=== PATIENT | female | born 1960 | race Caucasian/White ===

== ENCOUNTER → 2016-06-07 | Outpatient (CLI) | payer OTHER | LOC: FIMAGING 09:09 | DX: Z12.31 Encounter for screening mammogram for malignant neoplasm of breast (principal) | CPT/HCPCS: G0202 ==

== ENCOUNTER → 2017-06-13 | Outpatient (CLI) | payer OTHER | LOC: FIMAGING 09:07 | PROVIDERS: ATTEND Obstetrics & Gynecology | DX: Z12.31 Encounter for screening mammogram for malignant neoplasm of breast (principal) ==

== ENCOUNTER 2017-08-16 05:51 | Day surgery (SDC) | payer OTHER ==
--- NOTE | 2017-08-15 18:08 | PDGENHP ---
History & Physical Chief Complaint: Preop: Laparoscopic BSO, removal of adnexal mass History of Present Illness: 57 yo who I saw in the office recently in consulation regarding adnexal mass discovered on recent US. This lesion had simple septations (without blood flow within) and some comment of escrescences/ nodularity on the cyst wall. We did get a CA125 that was normal. We discussed tx options included observation and LS removal - and she'd prefer removal which I think is prudent. Discussed RBA of just cystectomy vs USO vs BSO at her age and she'd prefer BSO. Pertinent Past, Social, Family History: Non-contributory. Relevant Physical Exam: NAD, RRR, LCTAB. Assessment & Plan Assessment: Preop: Laparoscopic BSO w/ removal of adnexal mass - Routine preop orders. Abx are NOT needed for this case. - Pyridium 200mg PO x 1 to be given in PREOP prior to procedure. - Will plan on home same day, with script for PO narcotics PRN and post-op instructions. JEFF
[2017-08-16] MEDS ORDERED: PHENAZOPYRIDINE HCL 200 MG TAB PO ONE (06:15)
[2017-08-16] MEDS ORDERED: LR 1,000 ML IV ONE (06:16)
[2017-08-16] MEDS ORDERED: LIDOCAINE 1% 2 ML INJ ID PRN (06:16)
[2017-08-16] MEDS ORDERED: BUPIVACAINE/EPI 0.5% 30 ML SDV ONE (06:29)
[2017-08-16] MEDS ORDERED: MIDAZOLAM 2 MG/2 ML VIAL IVP ONE (07:00)
[2017-08-16] MEDS ORDERED: SCOPOLAMINE HYDROBROMIDE 1 MG/3 DAYS PATCH TD SCH (07:00)
--- NOTE | 2017-08-16 07:01 | PDANEPAE ---
ANE History of Present Illness left adnexal cyst ANE Past Medical History - Cardiovascular History Hx Hypertension: No Hx Arrhythmias: No Hx Chest Pain: No Hx Coronary Artery / Peripheral Vascular Disease: No Hx CHF / Valvular Disease: No Hx Palpitations: No - Pulmonary History Hx COPD: No Hx Asthma/Reactive Airway Disease: No Hx Recent Upper Respiratory Infection: No Hx Oxygen in Use at Home: No Hx Sleep Apnea: No Sleep Apnea Screening Result - Last Documented: Negative - Neurologic History Hx Cerebrovascular Accident: No Hx Seizures: No Hx Dementia: No - Endocrine History Hx Diabetes: No - Renal History Hx Renal Disorders: No - Liver History Hx Hepatic Disorders: No - Neurological & Psychiatric Hx Hx Neurological and Psychiatric Disorders: No - Cancer History Hx Cancer: No - Congenital Disorder History Hx Congenital Disorders: No - GI History Hx Gastrointestinal Disorders: No - Other Health History Other Health History: none - Chronic Pain History Chronic Pain: No - Surgical History Prior Surgeries: fibroid ablation ANE Review of Systems Review of systems is: negative Review of Systems: - Exercise capacity METS (RN): 5 METS ANE Patient History - Allergies Allergies/Adverse Reactions: Penicillins Allergy (Mild, Verified 07/18/17 15:38) Hives - Home Medications Home medications: home medication list seen and reviewed Home Medications: Aspirin [Aspirin 81mg (OTC)] 09/01/11 [Last Taken 07/26/17] CHOLECALCIFEROL [Vitamin D] 09/01/11 [Last Taken 08/02/17] Multivitamins [Multivitamin (OTC)] 09/01/11 [Last Taken 08/02/17] Melrose-3 Fatty Acids [Fish Oil 1000 mg (OTC)] 09/01/11 [Last Taken 08/02/17] Pseudoephedrine HCl [Sudafed 12 Hour 120mg (OTC)] 09/01/11 [Last Taken 07/19/17 ] - NPO status NPO Since - Liquids (Date): 08/16/17 NPO Since - Liquids (Time): 02:00 NPO Since - Solids (Date): 08/15/17 NPO Since - Solids (Time): 19:00 - Anes Hx Anes Hx: no prior problems - Smoking Hx Smoking Status: Never smoked - Family Anes Hx Family Hx Anesthesia Complications: Multiple family members with problems with epinephrine ANE Labs/Vital Signs - Vital Signs Blood Pressure: 126/70 Heart Rate: 97 Respiratory Rate: 14 O2 Sat (%): 99 Height: 168.91 cm Weight: 58.06 kg ANE Physical Exam - Airway Neck exam: FROM Mallampati Score: Class 1 Mouth exam: normal dental/mouth exam - Pulmonary Pulmonary: no respiratory distress - Cardiovascular Cardiovascular: regular rate and rhythym - ASA Status ASA Status: II ANE Anesthesia Plan Anesthesia Plan: general endotracheal anesthesia
[2017-08-16] MEDS ORDERED: fentaNYL 100 MCG/2 ML INJ ONE ×2 (07:07→07:44)
[2017-08-16] MEDS ORDERED: PROPOFOL 200 MG/20 ML VIAL ONE (07:07)
[2017-08-16] MEDS ORDERED: DEXAMETHASONE 4 MG/ML VIAL ONE ×2 (07:08)
[2017-08-16] MEDS ORDERED: KETOROLAC 30 MG/1 ML SDV ONE (07:08)
[2017-08-16] MEDS ORDERED: LIDOCAINE 2% 5 ML SDV ONE (07:10)
--- NOTE | 2017-08-16 07:22 | PDHPUP ---
History & Physical Update H&P update statement: This history and physical update is based on an assessment of the patient which was completed after admission or registration (within 24 hours), but prior to the surgery/procedure. H&P update: H&P reviewed & patient examined, no change in patient's condition since H&P completed
[2017-08-16] MEDS ORDERED: ROCURONIUM 50 MG/5 ML VIAL ONE (07:44)
[2017-08-16] MEDS ORDERED: LIDOCAINE 2% 100 MG/5 ML SYR ONE (07:44)
[2017-08-16] MEDS ORDERED: SUGAMMADEX SODIUM 200 MG/2 ML VIAL IVP ONE (07:44)
[2017-08-16] MEDS ORDERED: ESMOLOL HCL 100 MG/10 ML VIAL IV ONE (07:46)
--- NOTE | 2017-08-16 08:09 | POSTANESTH ---
Post Anesthetic Evaluation Cardiovascular Status: Normal, Stable Respiratory Status: Normal, Stable Level of Consciousness/Mental Status: Can Participate in Eval Pain Control: Adequate, Prn Tx Ordered Nausea/Vomiting Control: Adequate, Prn Tx Ordered Complications Possibly Related to Anesthesia: None Noted
[2017-08-16] MEDS ORDERED: PROMETHAZINE HCL 25 MG/ML INJ IVP PRN (08:34)
[2017-08-16] MEDS ORDERED: ONDANSETRON 4 MG/2 ML VIAL IVP PRN (08:34)
[2017-08-16] MEDS ORDERED: NALOXONE HCL 0.4 MG/ML INJ IVP PRN (08:34)
[2017-08-16] MEDS ORDERED: HYDROmorphONE/DILAUDID 2 MG/ML INJ IVP PRN (08:34)
[2017-08-16] MEDS ORDERED: ACETAMINOPHEN 500 MG TAB PO PRN (08:34)
[2017-08-16] MEDS ORDERED: fentaNYL 100 MCG/2 ML INJ IVP PRN (08:34)
[2017-08-16] MEDS ORDERED: oxyCODONE IR 5 MG TAB PO PRN (08:34)
[2017-08-16] MEDS ORDERED: HYDROCODONE/APAP 5/325 TAB PO PRN (08:34)
[2017-08-16] MEDS ORDERED: ALBUTEROL 3 ML DEYVIAL IH PRN (08:34)
[2017-08-16] MEDS ORDERED: LR 500 ML IV PRN (08:34)
--- NOTE | 2017-08-16 08:52 | SUROPNOTE ---
[facility] Operative Report - Surgery Date of Operation: 08/16/17 Surgeon: Feroz Escobedo [employer] Operator: Meli Byrnes MD Anesthesia: GET(General Endotracheal) Pre-op Diagnosis: Left adnexal mass Post-op Diagnosis: Same, left pelvic adhesions, left adnexal mass Procedure: Diagnostic laparoscopy, laparoscopic BSO, cystoscopy Findings: Left ovary w/ 3cm cyst, ovary adhesed into left ovarian fossa Inf/Abcess present in the surg proc area at time of surgery?: No EBL: Minimal Complications: None Specimen(s): Left and right ovaries, sent separately with each respective fallopain tube
[2017-08-16 11:46] VITALS: BP 110/52
[2017-08-17] MEDS ORDERED: PATCH REMOVAL 1 EA PATCH TD ONE (07:00)
== END 2017-08-16 11:20 | disposition home or self-care (01) ==
LOC: FSGY 05:51
PROVIDERS: ATTEND Obstetrics & Gynecology
PROC: 0UT74ZZ Resection of Bilateral Fallopian Tubes, Percutaneous Endoscopic Approach (ICD-10-PCS; principal; 2017-08-16 07:15)
PROC: 0UT24ZZ Resection of Bilateral Ovaries, Percutaneous Endoscopic Approach (ICD-10-PCS; principal; 2017-08-16 07:15)
DX: R19.09 Other intra-abdominal and pelvic swelling, mass and lump (principal); N80.1 Endometriosis of ovary; N73.6 Female pelvic peritoneal adhesions (postinfective)
CPT/HCPCS: J1100; J1885; J2001; J2250; J2704; J3010

== ENCOUNTER → 2018-06-18 | Outpatient (CLI) | payer OTHER | LOC: FIMAGING 13:24 | PROVIDERS: ATTEND Obstetrics & Gynecology | DX: Z12.31 Encounter for screening mammogram for malignant neoplasm of breast (principal) ==